=== PATIENT | female | born 1950 | race Two or more races ===

== ENCOUNTER 2023-02-18 12:49 | Inpatient (IN) | payer OTHER ==
[~2023-02-18] VITALS: Ht 152.4 cm; Wt 46.7 kg
[2023-02-18 13:03] VITALS: PULSE 80; RESP 14; TEMP 97.8; O2SAT 97
[2023-02-18] MEDS ORDERED: LORazepam 2 MG/ML VIAL ONE (13:17)
[2023-02-18] MEDS ORDERED: levETIRAcetam 1,000 MG in NACL 0.9% 100 ML IV ONE (13:20)
[2023-02-18] MEDS ORDERED: LORazepam 2 MG/ML VIAL IVP ONE ×2 (13:20→18:15)
[2023-02-18] MEDS ORDERED: levETIRAcetam 100 MG/ML VIAL IV ONE (13:21)
[2023-02-18 13:48] LABS: BASOPHILS # (AUTO) 0.1 K/uL (0.00-0.22); BASOPHILS % (AUTO) 1.2 % (0.0-2.0); EOSINOPHILS # (AUTO) 0.2 K/uL (0-0.4); EOSINOPHILS % (AUTO) 2.3 % (0.0-4.0); HEMATOCRIT 37.8 % (36-48); HEMOGLOBIN 12.6 g/dL (12.0-16.0); LYMPHOCYTES # (AUTO) 2.9 K/uL (2.5-16.5); LYMPHOCYTES % (AUTO) 39.3 % (20.5-51.1); MEAN CORPUSCULAR HEMOGLOBIN 28 pg (27-31); MEAN CORPUSCULAR HGB CONC 33 g/dL (33-37); MEAN CORPUSCULAR VOLUME 85.4 fL (80-94); MONOCYTES # (AUTO) 0.6 K/uL (0.8-1.0); MONOCYTES % (AUTO) 8.5 % (1.7-9.3); NEUTROPHILS # (AUTO) 3.6 K/uL (1.8-7.7); NEUTROPHILS % (AUTO) 48.7 % (42.2-75.2); PLATELET COUNT (AUTO) 283 K/uL (140-450); RED BLOOD CELL COUNT(AUTO) 4.43 MIL/uL (4.20-5.40); WHITE BLOOD COUNT (AUTO) 7.4 K/uL (4.8-10.8)
[2023-02-18 14:08] LABS: ALANINE AMINOTRANSFERASE 9 U/L (12-78); ALCOHOL, BLOOD < 3 mg/dL (<10); ALKALINE PHOSPHATASE 96 U/L (50-136); ASPARTATE AMINOTRANSFERASE 25 U/L (15-37); CALCIUM 9.1 mg/dL (8.5-10.1); CARBON DIOXIDE 24.4 mmol/L (21-32); CHLORIDE 96 mmol/L (98-107); CREATINE KINASE, TOTAL 125 U/L (26-192); GLUCOSE 106 mg/dL (74-106); POTASSIUM 4.4 mmol/L (3.5-5.1); SODIUM SERUM 132 mmol/L (136-145); TOTAL BILIRUBIN 0.4 mg/dL (0.0-1.0); TOTAL PROTEIN, SERUM 7.5 g/dL (6.4-8.2); UREA NITROGEN, BLOOD 6 mg/dL (7-18)
[2023-02-18 14:16] LABS: ACETAMINOPHEN < 0.5 ug/ml (10-30); SALICYLATE < 2.8 mg/dL (2.8-20.0)
[2023-02-18 15:39] LABS: APPEARANCE,URINE CLEAR (CLEAR); BILIRUBIN,URINE NEGATIVE (NEGATIVE); BLOOD, URINE NEGATIVE (NEGATIVE); COLOR,URINE YELLOW (YELLOW); LEUKOCYTE ESTERASE ,URINE NEGATIVE (NEGATIVE); NITRITE, URINE NEGATIVE (NEGATIVE); PROTEIN,URINE 1+ (NEGATIVE); UGLUCOSE NEGATIVE (NEGATIVE); UROBILINOGEN,URINE 0.2 EU/dL (0.2 - 1)
[2023-02-18 15:50] LABS: AMPHETAMINE, URINE NEGATIVE ng/ml (NEG <=1000); BACTERIA,URINE None Seen /HPF (None Seen); BARBITURATE, URINE NEGATIVE ng/ml (NEG <=200); BENZODIAZEPINE, URINE POSITIVE ng/mL (NEG <=200); CANNABINOID, URINE NEGATIVE ng/mL (NEG <=50); COCAINE, URINE NEGATIVE ng/mL (NEG <=300); MUCUS,URINE 1+ /LPF (None Seen); OPIATE, URINE NEGATIVE ng/mL (NEG <=2000); PHENCYCLIDINE SCREEN,URINE NEGATIVE ng/mL (NEG <=25); RBC,URINE NONE SEEN /HPF (0-5); SQUAMOUS EPITHELIAL CELL,UR 0-3 (FEW) /LPF (0-3 (FEW)); TRICHOMONAS,URINE None Seen /HPF (None Seen); WBC,URINE NONE SEEN /HPF (0-5); YEAST,URINE None Seen /HPF (None Seen)
[2023-02-18] MEDS ORDERED: SERT-515 PO (16:43)
[2023-02-18] MEDS ORDERED: BRIM5SOL2 OP (16:43)
[2023-02-18] MEDS ORDERED: BRIM5DRO7 OP (16:43)
[2023-02-18] MEDS ORDERED: CLOB10TA PO (16:43)
[2023-02-18] MEDS ORDERED: BIMA2.5S3 OP (16:43)
[2023-02-18] MEDS ORDERED: ROSU5TAB PO (16:43)
[2023-02-18] MEDS ORDERED: CARB1TAB39 PO (16:43)
[2023-02-18] MEDS ORDERED: EZET10TA50 PO (16:43)
[2023-02-18] MEDS ORDERED: DONE10TA37 PO (16:43)
[2023-02-18] MEDS ORDERED: QUET25TA46 PO (16:43)
[2023-02-18] MEDS ORDERED: METF-346 PO (16:43)
[2023-02-18] MEDS ORDERED: LEVE-1 PO (16:43)
[2023-02-18] MEDS ORDERED: LORazepam 2 MG/ML VIAL IVP PRN (18:30)
[2023-02-18 21:50] VITALS: BP 140/89; PULSE 67; RESP 18; TEMP 98; O2SAT 96
[2023-02-18 21:55] VITALS: PULSE 77
[2023-02-19] VITALS (8 sets, daily range): BP systolic 126–141; BP diastolic 56–90; PULSE 64–106; RESP 18; TEMP 97.7–98.8; O2SAT 95–99
[2023-02-19 06:16] LABS: BASOPHILS # (AUTO) 0.1 K/uL (0.00-0.22); BASOPHILS % (AUTO) 0.7 % (0.0-2.0); EOSINOPHILS # (AUTO) 0.2 K/uL (0-0.4); EOSINOPHILS % (AUTO) 2.2 % (0.0-4.0); HEMATOCRIT 34.1 % (36-48); HEMOGLOBIN 11.7 g/dL (12.0-16.0); LYMPHOCYTES # (AUTO) 1.2 K/uL (2.5-16.5); LYMPHOCYTES % (AUTO) 15.5 % (20.5-51.1); MEAN CORPUSCULAR HEMOGLOBIN 29 pg (27-31); MEAN CORPUSCULAR HGB CONC 34 g/dL (33-37); MEAN CORPUSCULAR VOLUME 82.9 fL (80-94); MONOCYTES # (AUTO) 0.5 K/uL (0.8-1.0); MONOCYTES % (AUTO) 6.6 % (1.7-9.3); PLATELET COUNT (AUTO) 267 K/uL (140-450); RED BLOOD CELL COUNT(AUTO) 4.11 MIL/uL (4.20-5.40); RED CELL DISTRIBUTION WIDTH 12.7 % (11.6-13.7)
[2023-02-19 06:39] LABS: ANION GAP 12.5 (8-16); CALCIUM 8.6 mg/dL (8.5-10.1); CARBON DIOXIDE 27.4 mmol/L (21-32); CHLORIDE 98 mmol/L (98-107); CREATININE 0.8 mg/dL (0.6-1.3); GLUCOSE 107 mg/dL (74-106); POTASSIUM 3.9 mmol/L (3.5-5.1); SODIUM SERUM 134 mmol/L (136-145); UREA NITROGEN, BLOOD 6 mg/dL (7-18)
[2023-02-19] MEDS ORDERED: LORazepam 2 MG/ML VIAL IVP PRN (07:20)
[2023-02-19] MEDS ORDERED: POTASSIUM CHLORIDE 10 MEQ TABER PO PRN (11:05)
[2023-02-19] MEDS ORDERED: MAG SULF 2000 MG/WATER PREMIX 50 ML IV PRN (11:05)
[2023-02-19] MEDS: CARBIDOPA/LEVODOPA 25/100 MG 1 TAB PO SCH ×2 (13:10→17:00)
[2023-02-19] MEDS: metFORMIN 500 MG TAB PO SCH (17:00)
[2023-02-19] MEDS: levETIRAcetam 500 MG TAB PO SCH (20:54)
[2023-02-19] MEDS ORDERED: levETIRAcetam 500 MG TAB PO SCH (21:00)
[2023-02-19] MEDS ORDERED: LEVETIRACETAM PO SCH (21:00)
[2023-02-20] VITALS: BP 140/70; PULSE 79; PULSE 91; RESP 17; TEMP 98.4; O2SAT 92
[2023-02-20 04:00] VITALS: BP 129/63; PULSE 80; PULSE 85; RESP 18; TEMP 97.5; O2SAT 97
[2023-02-20 06:13] LABS: BASOPHILS # (AUTO) 0.1 K/uL (0.00-0.22); BASOPHILS % (AUTO) 0.7 % (0.0-2.0); EOSINOPHILS # (AUTO) 0.1 K/uL (0-0.4); EOSINOPHILS % (AUTO) 0.9 % (0.0-4.0); HEMATOCRIT 36.4 % (36-48); HEMOGLOBIN 12.4 g/dL (12.0-16.0); LYMPHOCYTES # (AUTO) 1.8 K/uL (2.5-16.5); MEAN CORPUSCULAR HEMOGLOBIN 28 pg (27-31); MEAN CORPUSCULAR HGB CONC 34 g/dL (33-37); MEAN CORPUSCULAR VOLUME 82.7 fL (80-94); MONOCYTES # (AUTO) 0.7 K/uL (0.8-1.0); MONOCYTES % (AUTO) 8.7 % (1.7-9.3); NEUTROPHILS # (AUTO) 5.8 K/uL (1.8-7.7); NEUTROPHILS % (AUTO) 68.7 % (42.2-75.2); PLATELET COUNT (AUTO) 260 K/uL (140-450); RED CELL DISTRIBUTION WIDTH 13.2 % (11.6-13.7); WHITE BLOOD COUNT (AUTO) 8.4 K/uL (4.8-10.8)
[2023-02-20 06:40] LABS: CALCIUM 8.8 mg/dL (8.5-10.1); CARBON DIOXIDE 28.7 mmol/L (21-32); CHLORIDE 101 mmol/L (98-107); CREATININE 0.8 mg/dL (0.6-1.3); GLUCOSE 111 mg/dL (74-106); POTASSIUM 3.7 mmol/L (3.5-5.1); SODIUM SERUM 137 mmol/L (136-145); UREA NITROGEN, BLOOD 7 mg/dL (7-18)
[2023-02-20 06:46] LABS: MAGNESIUM 1.8 mg/dL (1.8-2.4)
[2023-02-20 08:00] VITALS: BP 121/64; PULSE 75; RESP 18; TEMP 97.7; O2SAT 96
[2023-02-20] MEDS: CARBIDOPA/LEVODOPA 25/100 MG 1 TAB PO SCH ×3 (09:24→18:01)
[2023-02-20] MEDS: SERTRALINE 50 MG TAB PO SCH (09:24)
[2023-02-20] MEDS: DONEPEZIL 10 MG TAB PO SCH (09:24)
[2023-02-20] MEDS: EZETIMIBE 10 MG TAB PO SCH (09:24)
[2023-02-20] MEDS: levETIRAcetam 500 MG TAB PO SCH (09:25)
[2023-02-20] MEDS: QUEtiapine FUMARATE 25 MG TAB PO SCH (09:25)
[2023-02-20] MEDS: metFORMIN 500 MG TAB PO SCH ×2 (09:25→17:00)
[2023-02-20 12:00] VITALS: BP 108/66; PULSE 88; RESP 18; TEMP 97.6; O2SAT 97
[2023-02-20 16:00] VITALS: BP 115/62; PULSE 91; RESP 18; TEMP 96.8; O2SAT 98
[2023-02-20 20:00] VITALS: BP 114/70; PULSE 84; PULSE 85; RESP 16; TEMP 97.9; O2SAT 96
[2023-02-20] MEDS ORDERED: levETIRAcetam 500 MG TAB PO SCH (21:00)
[2023-02-21] VITALS: BP 106/61; PULSE 75; PULSE 79; RESP 15; TEMP 97.5; O2SAT 97
[2023-02-21 04:00] VITALS: BP 132/72; PULSE 69; PULSE 70; RESP 15; TEMP 96.6; O2SAT 97
[2023-02-21 06:24] LABS: BASOPHILS # (AUTO) 0.1 K/uL (0.00-0.22); BASOPHILS % (AUTO) 0.6 % (0.0-2.0); EOSINOPHILS # (AUTO) 0.2 K/uL (0-0.4); HEMATOCRIT 34.4 % (36-48); HEMOGLOBIN 11.6 g/dL (12.0-16.0); LYMPHOCYTES # (AUTO) 1.7 K/uL (2.5-16.5); MEAN CORPUSCULAR HEMOGLOBIN 28 pg (27-31); MEAN CORPUSCULAR HGB CONC 34 g/dL (33-37); MEAN CORPUSCULAR VOLUME 84.2 fL (80-94); MONOCYTES # (AUTO) 0.9 K/uL (0.8-1.0); MONOCYTES % (AUTO) 8.1 % (1.7-9.3); NEUTROPHILS # (AUTO) 8.6 K/uL (1.8-7.7); NEUTROPHILS % (AUTO) 74.3 % (42.2-75.2); PLATELET COUNT (AUTO) 256 K/uL (140-450); RED BLOOD CELL COUNT(AUTO) 4.09 MIL/uL (4.20-5.40); RED CELL DISTRIBUTION WIDTH 13.3 % (11.6-13.7); WHITE BLOOD COUNT (AUTO) 11.5 K/uL (4.8-10.8)
[2023-02-21 06:31] LABS: ANION GAP 10.1 (8-16); CALCIUM 8.9 mg/dL (8.5-10.1); CARBON DIOXIDE 29.5 mmol/L (21-32); CHLORIDE 102 mmol/L (98-107); CREATININE 0.9 mg/dL (0.6-1.3); GLUCOSE 124 mg/dL (74-106); POTASSIUM 3.6 mmol/L (3.5-5.1); SODIUM SERUM 138 mmol/L (136-145); UREA NITROGEN, BLOOD 13 mg/dL (7-18)
[2023-02-21 06:40] LABS: MAGNESIUM 1.7 mg/dL (1.8-2.4); PHOSPHORUS 3.9 mg/dL (2.5-4.9)
[2023-02-21] MEDS: SERTRALINE 50 MG TAB PO SCH (08:40)
[2023-02-21] MEDS: EZETIMIBE 10 MG TAB PO SCH (08:41)
[2023-02-21] MEDS: DONEPEZIL 10 MG TAB PO SCH (08:41)
[2023-02-21] MEDS: QUEtiapine FUMARATE 25 MG TAB PO SCH (08:41)
[2023-02-21] MEDS: CARBIDOPA/LEVODOPA 25/100 MG 1 TAB PO SCH ×2 (08:41→14:14)
[2023-02-21] MEDS: metFORMIN 500 MG TAB PO SCH (08:41)
[2023-02-21] MEDS ORDERED: KEP500 PO ×2 (09:48)
[2023-02-21 15:01] VITALS: BP 117/57; PULSE 71; RESP 18; TEMP 97.8
[2023-02-21] MEDS ORDERED: levETIRAcetam 500 MG TAB PO SCH (15:29)
[2023-02-22] MEDS ORDERED: levETIRAcetam 500 MG TAB PO SCH (09:00)
== END 2023-02-21 15:53 | disposition home or self-care (01) | DRG 100 ==
LOC: MED 12:49 → MTU 18:37 → EEVIPCON 18:37 → MTU 20:55
PROC: 4A00X4Z Measurement of Central Nervous Electrical Activity, External Approach (ICD-10-PCS; principal; 2023-02-20)
DX: G40.909 Epilepsy, unspecified, not intractable, without status epilepticus (principal); G93.41 Metabolic encephalopathy; E87.1 Hypo-osmolality and hyponatremia; E11.9 Type 2 diabetes mellitus without complications; E86.0 Dehydration; I67.2 Cerebral atherosclerosis; G20 Parkinson's disease; Z79.899 Other long term (current) drug therapy
CPT/HCPCS: 36415; 70450; 71045; 72125; 80048; 80053; 80173; 80305; 81001; 82550; 82948; 83735; 84100; 84484; 85025; 87081; 93005; 95816; 96374; 96375; 99291; G0480; G0482; J1953; J2060